=== PATIENT | male | born 1980 | race Caucasian/White ===

== ENCOUNTER 2018-06-28 00:59 | Emergency (ER) | payer SELFPAY ==
--- NOTE | 2018-06-28 01:25 | ED PDOC ---
HPI: General Adult Time Seen by Provider: 06/28/18 01:11 Chief Complaint (Nursing): Medical Clearance Chief Complaint (Provider): clearance for incarceration History Per: Patient History/Exam Limitations: no limitations Additional Complaint(s): 37 y/o M with no significant PMH who was brought in by [facility] for incarceration. Pt was found intoxicated at the nursing home where he is staying. Denies any physical complaints. Admits to drinking some beers today to celebrate [place]. Denies HI/SI, auditory of visual hallucinations. Past Medical History Reviewed: Historical Data, Nursing Documentation, Vital Signs Vital Signs: Last Vital Signs Temp 97.6 F 06/28/18 01:03 Pulse 106 H 06/28/18 01:03 Resp 20 06/28/18 01:03 BP 145/96 H 06/28/18 01:03 Pulse Ox 99 06/28/18 01:03 - Medical History PMH: No Chronic Diseases - Surgical History Surgical History: No Surg Hx - Family History Family History: States: Unknown Family Hx - Immunization History Hx Tetanus Toxoid Vaccination: No Hx Influenza Vaccination: No Hx Pneumococcal Vaccination: No - Home Medications Home Medications: Ambulatory Orders Medication Instructions Recorded No Known Home Med 10/08/14 - Allergies Allergies/Adverse Reactions: Allergies Allergy/AdvReac Type Severity Reaction Status Date / Time No Known Allergies Allergy Verified 06/28/18 01:05 Review of Systems Constitutional: Negative for: Fever, Chills Cardiovascular: Negative for: Chest Pain Respiratory: Negative for: Cough Physical Exam - Reviewed Nursing Documentation Reviewed: Yes Vital Signs Reviewed: Yes - Physical Exam Appears: Positive for: Non-toxic Head Exam: Positive for: ATRAUMATIC Skin: Positive for: Normal Color Eye Exam: Positive for: Conjunctival injection (B/L) Neck: Positive for: Normal Cardiovascular/Chest: Positive for: Regular Rate, Rhythm Respiratory: Positive for: Normal Breath Sounds Gastrointestinal/Abdominal: Positive for: Normal Exam Back: Positive for: Normal Inspection Extremity: Positive for: Normal ROM Neurologic/Psych: Positive for: Alert, Oriented (x 3), Mood/Affect (appropriate), Gait (steady) - ECG O2 Sat by Pulse Oximetry: 99 Medical Decision Making Medical Decision Making: crisis evaluation Pt ambulating with a steady gait and speaking coherently w/o difficulty. Pt seen by caseworker protective services and is psychiatrically stable for incarceration as per Dr. Manzanares. Pt is both medically and psychiatrically stable for incarceration. Disposition - Clinical Impression Clinical Impression: Alcohol intoxication - Patient ED Disposition Is Patient to be Admitted: No - Disposition Referrals: [facility] [Outside] Disposition: Discharged/Transfer to Law Enforcement Disposition Time: 01:38 Condition: STABLE Additional Instructions: Patient is stable both medically and psychiatrically for incarceration. Instructions: Alcohol Intoxication (ED) Forms: [employer] (German) Print Language: PASHTO
[2018-06-28 01:41] VITALS: BP 125/79; PULSE 92; RESP 16; TEMP 98.1
[2018-07-11 20:48] VITALS: O2SAT 99
== END 2018-06-28 02:45 | disposition home or self-care (01) ==
LOC: H.ER 00:59
DX: F10.129 Alcohol abuse with intoxication, unspecified (principal)

== ENCOUNTER 2018-07-21 17:20 | Emergency (ER) | payer SELFPAY ==
[2018-07-21 17:35] VITALS: BP 125/85; PULSE 111; RESP 20; TEMP 98.4; O2SAT 97; BMI 27.1
--- NOTE | 2018-07-21 18:18 | ED PDOC ---
HPI: Psych/Substance Abuse Time Seen by Provider: 07/21/18 18:09 Chief Complaint (Nursing): Alcohol Ingestion Chief Complaint (Provider): Alcohol Ingestion ED Caveat: Intoxicated History Per: Patient, EMS History/Exam Limitations: intoxication Onset/Duration Of Symptoms: Hrs ([employer]) Current Symptoms Are (Timing): Still Present Modifying Factor(s): Alcohol Additional Complaint(s): 37 year old male brought in by EMS after being found in streets. Patient admits to ETOH ingestion, but denies any injuries. No further complaints. Patient is a poor historian due to intoxication. Unable to obtain further information or me dical history. Past Medical History Reviewed: Unable To Obtain Vital Signs: Last Vital Signs Temp 98.4 F 07/21/18 17:34 Pulse 111 H 07/21/18 17:34 Resp 20 07/21/18 17:34 BP 125/85 07/21/18 17:34 Pulse Ox 97 07/21/18 17:34 - Medical History PMH: Denies: Diabetes, Hepatitis, HIV, HTN, Seizures, Sexually Transmitted Disease - Family History Family History: States: Unknown Family Hx - Immunization History Hx Tetanus Toxoid Vaccination: No Hx Influenza Vaccination: No Hx Pneumococcal Vaccination: No - Home Medications Home Medications: Ambulatory Orders Medication Instructions Recorded No Known Home Med 10/08/14 - Allergies Allergies/Adverse Reactions: Allergies Allergy/AdvReac Type Severity Reaction Status Date / Time No Known Allergies Allergy Verified 07/21/18 17:44 Review of Systems Review Of Systems: ROS cannot be obtained secondary to pt's inabilty to answer questions. Physical Exam - Reviewed Nursing Documentation Reviewed: Yes Vital Signs Reviewed: Yes - Physical Exam Appears: Positive for: No Acute Distress (responding to questions and appears intoxicated) Head Exam: Positive for: ATRAUMATIC, NORMOCEPHALIC Skin: Positive for: Normal Color, Warm, Dry Eye Exam: Positive for: Normal appearance, EOMI, PERRL Cardiovascular/Chest: Positive for: Regular Rate, Rhythm Respiratory: Positive for: Normal Breath Sounds Gastrointestinal/Abdominal: Positive for: Normal Exam, Soft. Negative for: Tenderness Extremity: Positive for: Normal ROM (upper and lower) Neurologic/Psych: Positive for: Other (awake). Negative for: Motor/Sensory Deficits - Laboratory Results Result Diagrams: 07/21/18 18:52 07/21/18 18:52 - ECG O2 Sat by Pulse Oximetry: 97 (RA) Pulse Ox Interpretation: Normal - Progress Re-evaluation Time: 23:40 Condition: Improved (Awake alert oriented x 3 No focal deficits. Wishes to go home) Medical Decision Making Medical Decision Making: Time: 1808 Initial Plan: --Alcohol serum --CMP --CBC with differentials --Glucose --1:1 Scribe Attestation: Documented by Liberty Solorzano, acting as a scribe for Jone Dos Santos MD. Pt states he had sex in prison 4 days ago and wishes to be tested for STI. Denies sxs at present time. Provider Scribe Attestation: All medical record entries made by the Scribe were at my direction and personally dictated by me. I have reviewed the chart and agree that the record accurately reflects my personal performance of the history, physical exam, medical decision making, and the department course for this patient. I have also personally directed, reviewed, and agree with the discharge instructions and disposition. Disposition - Clinical Impression Clinical Impression: Alcohol abuse with intoxication - Patient ED Disposition Is Patient to be Admitted: No Counseled Patient/Family Regarding: Studies Performed, Diagnosis, Need For Followup - Disposition Referrals: [facility] [Outside] Disposition: Routine/Home Disposition Time: 23:41 Condition: FAIR Instructions: Alcohol Use - When Is Drinking a Problem? Forms: [employer] (Colombian) Print Language: SCOTTISH
[2018-07-21 19:19] LABS: ALBUMIN 4.2 g/dL (3.5-5.0); ALT/SGPT 37 U/L (21-72); AST/SGOT 62 U/L (17-59)
[2018-07-21 19:20] LABS: BLOOD UREA NITROGEN 7 mg/dl (9-20); GFR NON-AFRICAN AMERICAN > 60
[2018-07-21 19:22] LABS: BASO # 0.1 K/uL (0.0-0.2); BASO % 2.2 % (0.0-2.0); EOS # 0.4 K/uL (0.0-0.7); EOS % 10.9 % (0.0-4.0); LYMPH # 2.2 K/uL (1.0-4.3); LYMPH % 52.8 % (20.0-40.0); MEAN CELL VOLUME 83.6 fl (80.0-94.0); MEAN CORPUSCULAR HEMOGLOBIN 26.8 pg (27.0-31.0); MEAN CORPUSCULAR HGB CONC 32.1 g/dL (33.0-37.0); MEAN PLATELET VOLUME 8.5 fl (7.2-11.7); MONO # 0.4 K/uL (0.0-0.8); MONO % 9.6 % (0.0-10.0); NEUT % 24.5 % (50.0-75.0); NRBC % 0.2 % (0.0-0.0); RBC 4.47 Mil/uL (4.40-5.90); RED CELL DISTRIBUTION WIDTH 19.2 % (11.5-14.5); WHITE BLOOD COUNT 4.1 K/uL (4.8-10.8)
[2018-07-21] MEDS ORDERED: Insulin Regular 100 units/ml ONE (23:15)
[2018-07-22 17:02] LABS: RAPID PLASMA REAGIN WEAKLY REACTIVE (NONREACTIVE)
[2018-07-24 07:38] LABS: HEPATITIS B SURFACE AG Negative (NEGATIVE)
[2018-07-24 07:44] LABS: HEPATITIS A IGM NEGATIVE (NEGATIVE); HEPATITIS B CORE AB NEGATIVE (NEGATIVE)
[2018-07-24 07:56] LABS: HEPATITIS C ANTIBODY NEGATIVE (NEGATIVE)
== END 2018-07-22 00:30 | disposition home or self-care (01) ==
LOC: H.ER 17:20
DX: F10.129 Alcohol abuse with intoxication, unspecified (principal)
CPT/HCPCS: 80053; 80074; 82948; 85025; 86592; 86780; 87390; 87491; 87591; 99283; G0480

== ENCOUNTER 2018-08-13 20:27 | Emergency (ER) | payer SELFPAY ==
[2018-08-13 20:28] VITALS: BMI 27.1
[2018-08-13 20:39] VITALS: BP 141/81; PULSE 102; RESP 16; TEMP 98; O2SAT 98
--- NOTE | 2018-08-13 20:57 | ED PDOC ---
HPI: Psych/Substance Abuse Time Seen by Provider: 08/13/18 20:40 Chief Complaint (Nursing): Alcohol Ingestion Chief Complaint (Provider): Alcohol Ingestion ED Caveat: Intoxicated, Uncooperative History Per: EMS History/Exam Limitations: intoxication Current Symptoms Are (Timing): Still Present Suicide/Self Injury Attempted (Context): None Modifying Factor(s): Alcohol Additional Complaint(s): 37 year old male presents to the ED via EMS for evaluation of alcohol intoxication. He was publicly intoxicated and was temporarily in the custody of the PD when he received a ticket and was released. Due to his state, he was brought to ED because he is disoriented and has an unsteady gait. He offers limited history, but does admit to drinking today. All other history is obtained via EMS due to intoxication and patient being uncooperative. Denies trauma and any physical complaints. PMD: none provided Past Medical History Reviewed: Historical Data, Nursing Documentation, Vital Signs, Unable To Obtain Vital Signs: Last Vital Signs Temp 98.0 F 08/13/18 20:37 Pulse 102 H 08/13/18 20:37 Resp 16 08/13/18 20:37 BP 141/81 08/13/18 20:37 Pulse Ox 98 08/13/18 20:37 - Medical History PMH: No Chronic Diseases - Family History Family History: States: Unknown Family Hx - Home Medications Home Medications: Ambulatory Orders Medication Instructions Recorded No Known Home Med 10/08/14 - Allergies Allergies/Adverse Reactions: Allergies Allergy/AdvReac Type Severity Reaction Status Date / Time No Known Allergies Allergy Verified 07/21/18 17:44 Review of Systems Review Of Systems: ROS cannot be obtained secondary to pt's inabilty to answer questions. Physical Exam - Reviewed Nursing Documentation Reviewed: Yes Vital Signs Reviewed: Yes - Physical Exam Comments: GENERAL APPEARANCE: Patient is alert, uncooperative, and intoxicated. Odor of alcohol on breath. SKIN: Warm, dry; (-) cyanosis HEAD: (-) scalp swelling, (-) scalp tenderness. EYES: (+) bilateral conjunctival pallor ENMT: Mucous membranes moist. Airway patent: (-) stridor. NECK: Supple, FROM HEART AND CARDIOVASCULAR: (-) irregularity CHEST AND RESPIRATORY: (-) rales, (-) rhonchi, (-) wheezes; breath sounds equal. Respirations even and nonlabored. ABDOMEN: Soft, (-) distention, (-) tenderness, (-) guarding. NEURO AND PSYCH: Mental status as above. (-) facial asymmetry. Speech: (+) slurred. - ECG O2 Sat by Pulse Oximetry: 98 (RA) Pulse Ox Interpretation: Normal Medical Decision Making Medical Decision Makin:42 Clinical Impression: alcohol intoxication Initial Plan: --Alcohol serum --Accucheck 2144 Serum alcohol: 410 Accucheck: 113 Patient sleeping comfortably on re-evaluation. Requesting food at this time. 2214 Patient asleep in ED. No signs of distress. 231 Patient ambulatory in ED with steady, unassisted gait. Now oriented x3. Patient approached ED RN desk multiple times asking for a room with a TV and coffee. Patient not cooperative with staff. Patient is stable and appropriate for discharge. Lab/Diagnostic results d/w the patient in great detail. Diagnosis of alcohol intoxication d/w the patient. Patient refused repeat vitals. Patient escorted out of ED by security. Patient refused to sign discharge papers. Based on history, exam and diagnostic results, plan will be for outpatient follow up. Patient instructed to follow-up with pmd / referral provided / the clinic in 1- 2 days without fail. Return to the emergency room at any time for any new or worsening symptoms. Scribe Attestation: Documented by Lissy Kaye, acting as a scribe for Carolyn Mujica PA-C Provider Scribe Attestation: All medical record entries made by the Scribe were at my direction and personally dictated by me. I have reviewed the chart and agree that the record accurately reflects my personal performance of the history, physical exam, medical decision making, and the department course for this patient. I have also personally directed, reviewed, and agree with the discharge instructions and disposition. Disposition - Clinical Impression Clinical Impression: Alcohol abuse with intoxication - Patient ED Disposition Is Patient to be Admitted: No Counseled Patient/Family Regarding: Studies Performed, Diagnosis, Need For Followup - Disposition Referrals: [facility] [Outside] Disposition: Routine/Home Disposition Time: 23:15 Condition: FAIR Additional Instructions: The emergency medical care you received today was directed at your acute symptoms. If you were prescribed any medication, please fill it and take as directed. It may take several days for your symptoms to resolve. Return to the Emergency Department if your symptoms worsen, do not improve, or if you have any other problems. Please contact your doctor in 2 days for re-evaluation and follow up / or call one of the physicians/clinics you have been referred to that are listed on the Patient Visit Information form that is included in your discharge packet. Bring any paperwork you were given at discharge with you along with any medications you are taking to your follow up visit. Our treatment cannot replace ongoing medical care by a primary care provider (PCP) outside of the emergency department. Instructions: Alcohol Use - When Is Drinking a Problem?, Effects of Alcohol on Your Health Forms: [employer] (Portuguese) Print Language: MACEDONIAN - POA Present On Arrival: None Results - Lab Results Lab Results: 08/13/18 21:19 Alcohol, Quantitative 410 H*
== END 2018-08-13 23:19 | disposition home or self-care (01) ==
LOC: H.ER 20:27
DX: F10.129 Alcohol abuse with intoxication, unspecified (principal); Y90.8 Blood alcohol level of 240 mg/100 ml or more
CPT/HCPCS: 82948; 99283; G0480

== ENCOUNTER 2018-10-27 21:44 | Observation (INO) | payer SELFPAY ==
[2018-10-27 21:44] VITALS: BMI 23.3
[2018-10-27 22:20] LABS: BASO % 0.7 % (0.0-2.0); EOS # 0.3 K/uL (0.0-0.7); EOS % 5.3 % (0.0-4.0); HEMOGLOBIN 12.2 g/dL (12.0-18.0); LYMPH # 2.7 K/uL (1.0-4.3); LYMPH % 44.6 % (20.0-40.0); MEAN CORPUSCULAR HEMOGLOBIN 27.5 pg (27.0-31.0); MEAN CORPUSCULAR HGB CONC 33.2 g/dL (33.0-37.0); MEAN PLATELET VOLUME 8.2 fl (7.2-11.7); MONO # 0.7 K/uL (0.0-0.8); MONO % 12.3 % (0.0-10.0); NEUT # 2.2 K/uL (1.8-7.0); NEUT % 37.1 % (50.0-75.0); NRBC % 0.1 % (0.0-0.0); RBC 4.45 Mil/uL (4.40-5.90); RED CELL DISTRIBUTION WIDTH 19.5 % (11.5-14.5)
[2018-10-27] MEDS ORDERED: Multivitamin (MVI) 10 ML, Thiamine 100 MG, Folic Acid 1 MG in Dextrose 5%/0.45% NS 1,00... IV ONE (22:30)
--- NOTE | 2018-10-27 22:40 | ED PDOC ---
HPI: Psych/Substance Abuse Time Seen by Provider: 10/27/18 22:01 Chief Complaint (Nursing): Alcohol Ingestion Chief Complaint (Provider): Alcohol Ingestion ED Caveat: Intoxicated History Per: Other (PD) History/Exam Limitations: intoxication Onset/Duration Of Symptoms: Hrs (LOGGING WORKER) Modifying Factor(s): Alcohol Additional Complaint(s): 38 year old male who is well known to this ED for multiple visits for alcohol intoxication and abuse presents to the ED for alcohol intoxication. Patient was found lying on the ground by PD. Patient is an unreliable historian due to intoxication. PMD: none provided Past Medical History Reviewed: Historical Data, Nursing Documentation, Vital Signs Vital Signs: Last Vital Signs Temp 96.3 F L 10/27/18 21:48 Pulse 96 H 10/27/18 21:48 Resp 18 10/27/18 21:48 BP 125/87 10/27/18 21:48 Pulse Ox 99 10/27/18 21:48 - Medical History PMH: Depression, Seizures (alcohol withdrawal) Denies: HIV, Chronic Kidney Disease - Family History Family History: States: Unknown Family Hx - Social History Alcohol: Other (yes) - Immunization History Hx Tetanus Toxoid Vaccination: No Hx Influenza Vaccination: No Hx Pneumococcal Vaccination: No - Home Medications Home Medications: Ambulatory Orders Medication Instructions Recorded No Known Home Med 10/28/18 - Allergies Allergies/Adverse Reactions: Allergies Allergy/AdvReac Type Severity Reaction Status Date / Time No Known Allergies Allergy Verified 10/27/18 21:48 Review of Systems Review Of Systems: ROS cannot be obtained secondary to pt's inabilty to answer questions. Physical Exam - Reviewed Nursing Documentation Reviewed: Yes Vital Signs Reviewed: Yes - Physical Exam Appears: Positive for: No Acute Distress (deeply sleeping, difficult to arouse, disheveled, unkempt) Head Exam: Negative for: NORMAL INSPECTION (Dried abrasion to the occipital ) Skin: Positive for: Warm, Dry Eye Exam: Positive for: EOMI, PERRL, Conjunctival injection, Other (Faint ecchymosis to the left brow with mild edema) ENT: Positive for: Other (Dry mucous membranes, gag reflex intact) Neck: Positive for: Painless ROM, Supple Cardiovascular/Chest: Positive for: Regular Rate, Rhythm. Negative for: Murmur Respiratory: Positive for: Normal Breath Sounds. Negative for: Respiratory Distress Gastrointestinal/Abdominal: Positive for: Soft. Negative for: Tenderness Back: Positive for: Normal Inspection. Negative for: Decreased ROM Extremity: Positive for: Normal ROM (moving all extremities to pain) Lymphatic: Negative for: Adenopathy Neurological/Psych: Positive for: Other (responds to painful stimuli, odor of alcohol on breath). Negative for: Awake, Alert, Oriented - Laboratory Results Result Diagrams: 10/27/18 22:16 10/27/18 22:16 - ECG O2 Sat by Pulse Oximetry: 99 (RA) Pulse Ox Interpretation: Normal Medical Decision Making Medical Decision Making: Time: 2203 Impression: alcohol intoxication and head injury Rule out traumatic brain injury Plan: --CT Cervical Spine w/o contrast --CT Head w/o contrast --Alcohol serum --CMP --Magnesium --Phosphorus --CBC --Glucose --Dextrose --quality assurance monitor chassis 2314 CT Head w/o contrast FINDINGS: BRAIN: No acute intraparenchymal hemorrhage. No mass lesion. No CT evidence for acute territorial infarct. No midline shift or extra-axial collections. VENTRICLES: No hydrocephalus. ORBITS: The orbits are unremarkable. SINUSES AND MASTOIDS: The paranasal sinuses and mastoid air cells are clear. BONES: No fracture. SOFT TISSUES: Left periorbital and forehead hematoma. IMPRESSION: Left periorbital and forehead hematoma. No acute intracranial abnormality. 2322 CT Cervical Spine w/o contrast Findings: There is no fracture or spondylolisthesis visualized. The paraspinal soft tissues are unremarkable. There are no lytic or blastic lesions. Straightening of cervical lordosis is seen, suggesting muscular spasm. There is evidence of minimal multilevel disk disease, demonstrated by minimal osteophytosis and endplate sclerosis. No significant disk herniation is noted at any level. Canal and foramina remain patent. IMPRESSION: 1. No fracture or spondylolisthesis. 2. Straightening of cervical lordosis is seen, suggesting muscular spasm. 3. Minimal multilevel spondylosis. [address] Yao, pending sobriety. ScribeAttestation: Documented byLiberty Solorzano, acting as a scribe for India Arce MD. Provider ScribeAttestation: All medical record entries made by the Scribe were at my direction and personally dictated by me. I have reviewed the chart and agree that the record accurately reflects my personal performance of the history, physical exam, medical decision making, and the department course for this patient. I have also personally directed, reviewed, and agree with the discharge instructions and disposition. Disposition - Clinical Impression Clinical Impression: Alcohol abuse with intoxication - Patient ED Disposition Is Patient to be Admitted: Transfer of Care - Disposition Disposition: Transfer of Care Disposition Time: 00:00 Condition: STABLE Patient Signed Over To: Carolyn Yao
[2018-10-27 23:01] LABS: ALBUMIN 4.2 g/dL (3.5-5.0); ALT/SGPT 36 U/L (21-72); AST/SGOT 88 U/L (17-59); BLOOD UREA NITROGEN 6 mg/dl (9-20); CALCIUM 8.7 mg/dL (8.4-10.2); GFR NON-AFRICAN AMERICAN > 60
--- NOTE | 2018-10-28 00:33 | ED PDOC ---
- Laboratory Results Result Diagrams: 10/27/18 22:16 10/27/18 22:16 Lab Results: Total Bilirubin 0.9 mg/dl (0.2-1.3) 10/27/18 22:16 AST 88 U/L (17-59) H D 10/27/18 22:16 ALT 36 U/L (21-72) 10/27/18 22:16 Alkaline Phosphatase 160 U/L (38-126) H D 10/27/18 22:16 Total Protein 8.2 G/DL (6.3-8.2) 10/27/18 22:16 Albumin 4.2 g/dL (3.5-5.0) 10/27/18 22:16 Globulin 4.1 gm/dL (2.2-3.9) H 10/27/18 22:16 Albumin/Globulin Ratio 1.0 (1.0-2.1) 10/27/18 22:16 - ECG O2 Sat by Pulse Oximetry: 99 (RA) Pulse Ox Interpretation: Normal Medical Decision Making Medical Decision Makin Patient endorsed by Dr. Arce, pending sobriety. Scribe Attestation: Documented by Fariha Wasserman, acting as a scribe for Carolyn Yao MD. Provider Scribe Attestation: All medical record entries made by the Scribe were at my direction and pers onally dictated by me. I have reviewed the chart and agree that the record accurately reflects my personal performance of the history, physical exam, medical decision making, and the department course for this patient. I have also personally directed, reviewed, and agree with the discharge instructions and disposition. Disposition - Clinical Impression Clinical Impression: Alcohol abuse with intoxication - POA Present On Arrival: None - Disposition Disposition: Routine/Home Disposition Time: 07:00 Condition: STABLE
[2018-10-28] MEDS ORDERED: Sodium Chloride 0.9% 1,000 ML IV STA (07:15)
[2018-10-28] MEDS ORDERED: Multivitamin (MVI) 10 ML, Folic Acid 1 MG, Thiamine 100 MG in Dextrose 5%/0.45% NS 1,00... IV ONE (07:41)
--- NOTE | 2018-10-28 08:43 | CT ---
Date of service: 10/27/2018 PROCEDURE: CT HEAD WITHOUT CONTRAST. HISTORY: Head COMPARISON: Made CT scan brain 04/06/2017. TECHNIQUE: Axial computed tomography images were obtained through the head/brain without intravenous contrast. Radiation dose: Total exam DLP = 1059.53 mGy-cm. This CT exam was performed using one or more of the following dose reduction techniques: Automated exposure control, adjustment of the mA and/or kV according to patient size, and/or use of iterative reconstruction technique. FINDINGS: HEMORRHAGE: No intracranial hemorrhage. BRAIN: Moderate generalized volume loss.. There also appears to be some minimal of periventricular low-attenuation changes. VENTRICLES: Unremarkable. No hydrocephalus. CALVARIUM: No acute calvarial fractures. Small left periorbital-supraorbital and frontotemporal scalp contusion.. Suspect an additional small mid and right posterior superior parietal scalp contusion. PARANASAL SINUSES: Unremarkable as visualized. No significant inflammatory changes. MASTOID AIR CELLS: Unremarkable as visualized. No inflammatory changes. OTHER FINDINGS: Redemonstrated is a buckle procedure globe. IMPRESSION: No acute hemorrhage. Moderate generalized volume loss. There also appears to be some minimal periventricular low-attenuation changes Small left periorbital/supraorbital and left frontotemporal scalp contusion Suspect an additional small mid and right posterior superior parietal scalp contusion.
--- NOTE | 2018-10-28 09:20 | CT ---
Date of service: 10/27/2018 PROCEDURE: CT cervical spine HISTORY: Head injury; severe intoxication COMPARISON: None available. TECHNIQUE: Axial computed tomography images were obtained of the cervical spine without the use of intravenous contrast. Coronal and sagittal reformatted images were created and reviewed. Radiation dose: Total exam DLP = 322.06 mGy-cm. This CT exam was performed using one or more of the following dose reduction techniques: Automated exposure control, adjustment of the mA and/or kV according to patient size, and/or use of iterative reconstruction technique. FINDINGS: Study is somewhat limited by motion artifact. VERTEBRAE: No fracture. Normal alignment. No destructive bony lesion. DISCS/SPINAL CANAL/NEURAL FORAMINA: At the C3-C4 level, there is small central and bilateral disc bulge that flattens the ventral surface of the thecal sac and may minimally flatten the ventral surface of the cord. Minor degenerative squaring of the uncovertebral joints. Exit foramina are marginal to adequate. At the C4-C5 level, small central and bilateral disc bulge also indents the ventral surface of the thecal sac and appears to reach the ventral surface of the cord. Central canal and exit foramina adequate. PARASPINAL SOFT TISSUES: Unremarkable. OTHER FINDINGS: None. IMPRESSION: Slightly limited motion degraded study. No acute fractures. Mild degenerative spondylosis most notably affecting the C4-C5 and C3-C4 levels but the Mild straightening of the normal cervical lordosis possibly due to patient positioning in the gantry however underlying element muscle spasm may contribute.
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
[2018-10-28 14:31] VITALS: RESP 20
--- NOTE | 2018-10-28 14:31 | RAD ---
Date of service: 10/28/2018 PROCEDURE: Radiographs of the Lumbar Spine. HISTORY: alcoholic s/p fall/contusions COMPARISON: No prior. TECHNIQUE: 5 views obtained. FINDINGS: BONES: Normal alignment. No listhesis. No fracture. DISC SPACES: Unremarkable. OTHER FINDINGS: None. IMPRESSION: Unremarkable radiographs of the lumbar spine.
[2018-10-28 16:45] VITALS: BP 134/88; PULSE 95; TEMP 98.1
[2018-10-28 18:40] VITALS: O2SAT 99
--- NOTE | 2018-10-30 11:57 | CARD ---
APPROVED REPORT Date of service: 10/28/2018 EKG Measurement Heart [id number] <Conclusion> Normal sinus rhythm Normal ECG
== END 2018-10-28 16:30 | disposition left against medical advice (07) ==
LOC: H.ER 21:44 → H.ERHOLD 10-28 07:19 → MERGE 10-28 07:19 → H.MEDSURG1 10-28 14:10
PROVIDERS: ADMIT Internal Medicine; ATTEND Internal Medicine
DX: F10.229 Alcohol dependence with intoxication, unspecified (principal); F10.239 Alcohol dependence with withdrawal, unspecified; M40.50 Lordosis, unspecified, site unspecified; S00.83XA Contusion of other part of head, initial encounter; X58.XXXA Exposure to other specified factors, initial encounter; Y93.9 Activity, unspecified; Y92.9 Unspecified place or not applicable; Y90.8 Blood alcohol level of 240 mg/100 ml or more; Z59.0 Homelessness; F32.9 Major depressive disorder, single episode, unspecified; R56.9 Unspecified convulsions; D69.6 Thrombocytopenia, unspecified
CPT/HCPCS: 70450; 71045; 72100; 72125; 80053; 82948; 83735; 84100; 85025; 86703; 96360; 99285; G0378; G0480; J3411; J7030; J7042

== ENCOUNTER 2018-10-30 01:36 | Emergency (ER) | payer SELFPAY ==
[2018-10-30 01:37] VITALS: BMI 23.3
[2018-10-30 01:46] VITALS: RESP 18
--- NOTE | 2018-10-30 04:15 | ED PDOC ---
HPI: Psych/Substance Abuse Time Seen by Provider: 10/30/18 01:50 Chief Complaint (Nursing): Alcohol Ingestion Chief Complaint (Provider): Alcohol Ingestion ED Caveat: Intoxicated History Per: Patient History/Exam Limitations: intoxication Additional Complaint(s): 38 y/o male presents to the ED due to public intoxication. Patient is well known provider due to multiple visits. Patient is unreliable historian due to intoxication. Patient was just admitted 24 hours ago for alcohol poisoning and signed against medical advice. PMD: none provided Past Medical History Reviewed: Historical Data, Nursing Documentation, Vital Signs Vital Signs: Last Vital Signs Temp 97.8 F 10/30/18 01:43 Pulse 97 H 10/30/18 01:43 Resp 18 10/30/18 01:43 BP 135/82 10/30/18 01:43 Pulse Ox 98 10/30/18 01:43 - Medical History PMH: Depression, Seizures (alcohol withdrawal) Denies: HIV, Chronic Kidney Disease - Family History Family History: States: Unknown Family Hx - Social History Alcohol: Social - Immunization History Hx Tetanus Toxoid Vaccination: No Hx Influenza Vaccination: No Hx Pneumococcal Vaccination: No - Home Medications Home Medications: Ambulatory Orders Medication Instructions Recorded No Known Home Med 10/08/14 No Known Home Med 10/28/18 - Allergies Allergies/Adverse Reactions: Allergies Allergy/AdvReac Type Severity Reaction Status Date / Time No Known Allergies Allergy Verified 10/30/18 12:40 Review of Systems ROS Statement: Except As Marked, All Systems Reviewed And Found Negative Review Of Systems: ROS cannot be obtained secondary to pt's inabilty to answer questions. (intoxicated) Physical Exam - Reviewed Nursing Documentation Reviewed: Yes Vital Signs Reviewed: Yes - Physical Exam Appears: Positive for: Well, Non-toxic, No Acute Distress Head Exam: Positive for: ATRAUMATIC, NORMOCEPHALIC Skin: Positive for: Normal Color, Warm, Dry Eye Exam: Positive for: Normal appearance, EOMI, PERRL, Other ((+)periorbital ecchymosis are noted whic are unchaged from 2 days ago) ENT: Positive for: Normal ENT Inspection Neck: Positive for: Normal, Painless ROM, Supple Cardiovascular/Chest: Positive for: Regular Rate, Rhythm. Negative for: Murmur Respiratory: Positive for: CNT, Normal Breath Sounds Gastrointestinal/Abdominal: Positive for: Normal Exam, Soft. Negative for: Tenderness Back: Positive for: Normal Inspection. Negative for: L CVA Tenderness, R CVA Tenderness Extremity: Positive for: Normal ROM, Other (left orbital contusion unchanged) Neurological/Psych: Positive for: Awake, Alert, Normal Tone, Oriented (x3). Negative for: Motor/Sensory Deficits - ECG O2 Sat by Pulse Oximetry: 98 Medical Decision Making Medical Decision Making: Time: 158 Initial Impression: alcohol intoxication Initial Plan: -Alcohol serum -Glucose -Accucheck At 5:30 patient is awake, alert and oriented with steady gait and fluent speech. Stable for discharge Dx Alcohol intoxication Scribe Attestation: Documented by Velia Brown, acting as a scribe for Jovon Butts. Provider Scribe Attestation: All medical record entries made by the Scribe were at my direction and personally dictated by me. I have reviewed the chart and agree that the record accurately reflects my personal performance of the history, physical exam, medical decision making, and the department course for this patient. I have also personally directed, reviewed, and agree with the discharge instructions and disposition. Disposition - Clinical Impression Clinical Impression: Alcohol abuse with intoxication - Disposition Disposition: Routine/Home Disposition Time: 05:30 Condition: STABLE Instructions: Alcohol Abuse and Alcoholism (DC) Forms: [employer] (Mongolian) Print Language: INDIAN
[2018-10-30 05:50] VITALS: BP 127/70; PULSE 75; TEMP 98.6
[2018-10-30 20:40] VITALS: O2SAT 98
== END 2018-10-30 05:55 | disposition home or self-care (01) ==
LOC: H.ER 01:36 → MERGE 01:36 → H.ER 05:55
DX: F10.129 Alcohol abuse with intoxication, unspecified (principal); Z86.59 Personal history of other mental and behavioral disorders; Y90.8 Blood alcohol level of 240 mg/100 ml or more
CPT/HCPCS: 82948; 99283; G0480